=== PATIENT | female | born 1990 | race American Indian/Alaskan Native ===

== ENCOUNTER 2019-11-22 19:57 | Observation (INO) | payer OTHER ==
[2019-11-22] MEDS ORDERED: diphenhydrAMINE 50 MG/ML VIAL IV ONE (21:17)
[2019-11-22] MEDS ORDERED: SODIUM CHLORIDE 0.9% 1000 ML 1,000 ML IV ONE ×2 (21:17→23:55)
[2019-11-22] MEDS ORDERED: ONDANSETRON 4 MG/2 ML INJ IV ONE ×2 (21:17→23:55)
[2019-11-22 22:09] LABS: Albumin 5.1 g/dL (3.9-5); Calcium 10.3 mg/dL (8.4-10.2)
--- NOTE | 2019-11-22 22:10 | Emergency Department Report ---
ED General Adult HPI - General Chief complaint: Nausea/Vomiting/Diarrhea Stated complaint: DEHYDRATION Time Seen by Provider: 11/22/19 20:59 Source: patient, EMS Mode of arrival: Stretcher Limitations: No Limitations - History of Present Illness Initial comments: Patient presents to the emergency department the chief complaint of body aches vomiting that started on Wednesday. Patient states that she felt like this once before when she had food poisoning. Patient also complains of diffuse abdominal pain but denies any diarrhea. Patient also denies chest pain, shortness breath, or headache. Patient denies fever or any recent travel. -: Sudden Location: abdomen Severity scale (0 -10): 10 Quality: aching Consistency: constant Improves with: none Worsens with: none Associated Symptoms: denies other symptoms, nausea/vomiting Treatments Prior to Arrival: none - Related Data Allergies Allergy/AdvReac Type Severity Reaction Status Date / Time No Known Allergies Allergy Unverified 11/22/19 21:40 ED Review of Systems ROS: Stated complaint: DEHYDRATION Other details as noted in HPI Comment: All other systems reviewed and negative Constitutional: denies: chills, fever Eyes: denies: eye pain, eye discharge, vision change ENT: denies: ear pain, throat pain Respiratory: denies: cough, shortness of breath, wheezing Cardiovascular: denies: chest pain, palpitations Endocrine: no symptoms reported Gastrointestinal: abdominal pain, nausea, vomiting. denies: diarrhea Genitourinary: denies: urgency, dysuria, discharge Musculoskeletal: denies: back pain, joint swelling, arthralgia Skin: denies: rash, lesions Neurological: denies: headache, weakness, paresthesias Psychiatric: denies: anxiety, depression Hematological/Lymphatic: denies: easy bleeding, easy bruising ED Past Medical Hx - Past Medical History Previous Medical History?: No - Surgical History Past Surgical History?: No - Social History Smoking Status: Current Every Day Smoker Substance Use Type: Marijuana ED Physical Exam - General Limitations: No Limitations General appearance: alert, in no apparent distress - Head Head exam: Present: atraumatic, normocephalic - Eye Eye exam: Present: normal appearance - ENT ENT exam: Present: mucous membranes moist - Neck Neck exam: Present: normal inspection - Respiratory Respiratory exam: Present: normal lung sounds bilaterally. Absent: respiratory distress - Cardiovascular Cardiovascular Exam: Present: regular rate, normal rhythm. Absent: systolic murmur, diastolic murmur, rubs, gallop - GI/Abdominal GI/Abdominal exam: Present: soft, tenderness (Diffuse ttp ), normal bowel sounds. Absent: distended - Extremities Exam Extremities exam: Present: normal inspection - Back Exam Back exam: Present: normal inspection - Neurological Exam Neurological exam: Present: alert, oriented X3, CN II-XII intact. Absent: motor sensory deficit - Psychiatric Psychiatric exam: Present: normal affect, normal mood - Skin Skin exam: Present: warm, dry, intact, normal color. Absent: rash ED Course Vital Signs 11/22/19 21:15 Temperature 98.2 F Pulse Rate 104 H Respiratory 16 Rate Blood Pressure 119/89 O2 Sat by Pulse 100 Oximetry ED Medical Decision Making - Lab Data Result diagrams: 11/22/19 21:25 11/22/19 21:25 Lab Results 11/22/19 11/22/19 11/22/19 Range/Units 21:25 21:25 21:25 WBC 8.5 (4.5-11.0) K/mm3 RBC 5.96 H (3.65-5.03) M/mm3 Hgb 15.2 H (10.1-14.3) gm/dl Hct 47.1 H (30.3-42.9) % MCV 79 (79-97) fl MCH 26 L (28-32) pg MCHC 32 (30-34) % RDW 18.1 H (13.2-15.2) % Plt Count 681 H (140-440) K/mm3 Lymph % (Auto) 23.0 (13.4-35.0) % Wallace % (Auto) 15.2 H (0.0-7.3) % Eos % (Auto) 0.5 (0.0-4.3) % Baso % (Auto) 0.8 (0.0-1.8) % Lymph # 1.9 (1.2-5.4) K/mm3 Wallace # 1.3 H (0.0-0.8) K/mm3 Eos # 0.0 (0.0-0.4) K/mm3 Baso # 0.1 (0.0-0.1) K/mm3 Seg Neutrophils % 60.5 (40.0-70.0) % Seg Neutrophils # 5.1 (1.8-7.7) K/mm3 Sodium 132 L (137-145) mmol/L Potassium 4.3 (3.6-5.0) mmol/L Chloride 90.3 L (98-107) mmol/L Carbon Dioxide 18 L (22-30) mmol/L Anion Gap 28 mmol/L BUN 48 H (7-17) mg/dL Creatinine 4.4 H (0.7-1.2) mg/dL Estimated GFR 14 ml/min BUN/Creatinine Ratio 11 % Glucose 113 H (65-100) mg/dL Calcium 10.3 H (8.4-10.2) mg/dL Total Bilirubin 0.40 (0.1-1.2) mg/dL AST 24 (5-40) units/L ALT 17 (7-56) units/L Alkaline Phosphatase 70 (35-129) units/L Total Protein 10.1 H (6.3-8.2) g/dL Albumin 5.1 H (3.9-5) g/dL Albumin/Globulin Ratio 1.0 % Lipase 48 (13-60) units/L HCG, Quant < 2 (0-4) mIU/mL - Radiology Data Radiology results: report reviewed - Medical Decision Making Patient received IV fluids and Zofran with improvement in her symptoms Discussed results with patient and need for admission Critical Care Time: Yes Critical care time in (mins) excluding proc time.: 35 Critical care attestation.: If time is entered above; I have spent that time in minutes in the direct care of this critically ill patient, excluding procedure time. ED Disposition Clinical Impression: Acute renal failure (ARF) Disposition: OP ADMIT IP TO THIS HOSP Is pt being admited?: Yes Does the pt Need Aspirin: No Condition: Fair
[2019-11-22 22:15] LABS: Basophils # (Auto) 0.1 K/mm3 (0.0-0.1); Basophils % (Auto) 0.8 % (0.0-1.8); Eosinophils % (Auto) 0.5 % (0.0-4.3); Hematocrit 47.1 % (30.3-42.9); Hemoglobin 15.2 gm/dl (10.1-14.3); Lymphocytes # (Auto) 1.9 K/mm3 (1.2-5.4); Mean Corpuscular HGB Conc 32 % (30-34); Mean Corpuscular Volume 79 fl (79-97); Monocytes # (Auto) 1.3 K/mm3 (0.0-0.8); Monocytes % (Auto) 15.2 % (0.0-7.3); Platelet Count 681 K/mm3 (140-440); Red Blood Count 5.96 M/mm3 (3.65-5.03); Red Cell Distribution Width 18.1 % (13.2-15.2)
[2019-11-22] MEDS ORDERED: MORPHINE 4 MG/1 ML INJ IV ONE (23:55)
--- NOTE | 2019-11-23 00:15 | Cat Scan Report ---
CT ABDOMEN AND PELVIS WITHOUT CONTRAST INDICATION / CLINICAL INFORMATION: Pt complains of abdominal pain with nausea and vomiting.. TECHNIQUE: Axial CT images were obtained through the abdomen and pelvis without IV contrast. All CT scans at [facility] location are performed using CT dose reduction for ALARA by means of automated exposure control. T he exam is somewhat limited secondary to respiratory motion during the examination. COMPARISON: None available. FINDINGS: LOWER CHEST: No significant abnormality. LIVER: No significant abnormality. GALLBLADDER: No significant abnormality. BILE DUCTS: No significant abnormality. PANCREAS: No significant abnormality. SPLEEN: No significant abnormality. ADRENALS: No significant abnormality. RIGHT KIDNEY and URETER: No significant abnormality. LEFT KIDNEY and URETER: No significant abnormality. STOMACH and SMALL BOWEL: No significant abnormality. COLON: No significant abnormality. APPENDIX: No significant abnormality. PERITONEUM: No free fluid. No free air. No fluid collection. LYMPH NODES: No significant adenopathy. AORTA and ARTERIES: No significant abnormality. IVC and VEINS: No significant abnormality. URINARY BLADDER: No significant abnormality. REPRODUCTIVE ORGANS: No significant abnormality. ADDITIONAL FINDINGS: None. SKELETAL SYSTEM: No significant abnormality. IMPRESSION: 1. No significant abnormality. Signer Name: Siddharth Leo MD Signed: 11/23/2019 12:10 AM Workstation Name: [id number]
[2019-11-23] MEDS ORDERED: ACETAMINOPHEN 325 MG TAB PO PRN (01:21)
[2019-11-23] MEDS ORDERED: MAGNESIUM HYDROXIDE (MOM) ORAL LIQD UDC PO PRN (01:21)
--- NOTE | 2019-11-23 01:32 | History and Physical Report ---
History of Present Illness Date of examination: 11/23/19 Date of admission: 11/23/19 00:44 Chief complaint: Nausea and vomiting Abdominal pain History of present illness: 29-year-old female with no significant past medical history presenting to the emergency room today complaining of generalized body aches and pain, nausea and vomiting which started about 5 days ago. She has also had some associated abdominal pain. She denies any fever or chills, no chest pain or shortness of breath, no headache or dizziness, no hematuria or dysuria, denies any recent travel or sick contacts. She denies contact with anyone with COVID-19. Patient indicates that she has had similar symptoms in the past when she had food poisoning. Work-up in the emergency room today reveals a creatinine of 4.4. CT scan of the abdomen and pelvis was unremarkable. Past History Past Medical History: No medical history Past Surgical History: No surgical history Social history: no significant social history Family history: no significant family history Medications and Allergies Allergies Allergy/AdvReac Type Severity Reaction Status Date / Time No Known Allergies Allergy Verified 11/23/19 01:26 Active Meds: Active Medications Acetaminophen (Tylenol) 650 mg PO Q4H PRN PRN Reason: Pain MILD(1-3)/Fever >100.5/ORTIZ Heparin Sodium (Porcine) (Heparin) 5,000 unit SUB-Q Q8HR TRAVIS Sodium Chloride (Nacl 0.9% 1000 Ml) 1,000 mls @ 125 mls/hr IV DIRECT TRAVIS Magnesium Hydroxide (Milk Of Magnesia) 30 ml PO Q4H PRN PRN Reason: Constipation Morphine Sulfate (Morphine) 2 mg IV Q4H PRN PRN Reason: Pain, Moderate (4-6) Ondansetron HCl (Zofran) 4 mg IV Q8H PRN PRN Reason: Nausea And Vomiting Sodium Chloride (Sodium Chloride Flush Syringe 10 Ml) 10 ml IV BID TRAVIS Sodium Chloride (Sodium Chloride Flush Syringe 10 Ml) 10 ml IV PRN PRN PRN Reason: LINE FLUSH Review of Systems Constitutional: no fever, no chills Ears, nose, mouth and throat: no nasal congestion, no sore throat Cardiovascular: no chest pain, no palpitations Respiratory: no cough, no shortness of breath Gastrointestinal: abdominal pain, nausea, vomiting, no diarrhea, no constipation Genitourinary Female: no pelvic pain, no flank pain, no dysuria, no hematuria Musculoskeletal: no neck pain, no low back pain Integumentary: no rash, no pruritis Neurological: no headaches, no confusion Psychiatric: no anxiety, no depression Exam - Constitutional Vitals: Temp Pulse Resp BP Pulse Ox 98.2 F 104 H 16 119/89 100 11/22/19 21:15 11/22/19 21:15 11/22/19 21:15 11/22/19 21:15 11/22/19 21:15 General appearance: Present: no acute distress, well-nourished - EENT Eyes: Present: PERRL, EOM intact ENT: hearing intact, clear oral mucosa, dentition normal - Neck Neck: Present: supple, normal ROM - Respiratory Respiratory effort: normal Respiratory: bilateral: CTA - Cardiovascular Rhythm: regular Heart Sounds: Present: S1 & S2. Absent: gallop, systolic murmur, diastolic murmur, rub - Extremities Extremities: no ischemia, pulses intact, pulses symmetrical, No edema, Full ROM Peripheral Pulses: within normal limits - Abdominal General gastrointestinal: Present: soft, tender, non-distended, normal bowel sounds Localized gastrointestinal: tender: RLQ, LLQ, suprapubic - Integumentary Integumentary: Present: clear, warm, dry - Musculoskeletal Musculoskeletal: strength equal bilaterally - Psychiatric Psychiatric: appropriate mood/affect, cooperative - Neurologic Neurologic: CNII-XII intact, no focal deficits, moves all extremities Results - Labs CBC & Chem 7: 11/22/19 21:25 11/22/19 21:25 Labs: Abnormal lab results 11/22/19 11/22/19 Range/Units 21:25 21:25 RBC 5.96 H (3.65-5.03) M/mm3 Hgb 15.2 H (10.1-14.3) gm/dl Hct 47.1 H (30.3-42.9) % MCH 26 L (28-32) pg RDW 18.1 H (13.2-15.2) % Plt Count 681 H (140-440) K/mm3 [place] % (Auto) 15.2 H (0.0-7.3) % [place] # 1.3 H (0.0-0.8) K/mm3 Sodium 132 L (137-145) mmol/L Chloride 90.3 L (98-107) mmol/L Carbon Dioxide 18 L (22-30) mmol/L BUN 48 H (7-17) mg/dL Creatinine 4.4 H (0.7-1.2) mg/dL Glucose 113 H (65-100) mg/dL Calcium 10.3 H (8.4-10.2) mg/dL Total Protein 10.1 H (6.3-8.2) g/dL Albumin 5.1 H (3.9-5) g/dL Assessment and Plan - Patient Problems (1) Acute renal failure (ARF) Current Visit: Yes Status: Acute Plan to address problem: Possibly secondary to the nausea and vomiting. She has been placed on IV fluid. Will monitor BUN and creatinine. Consult placed to nephrology for evaluation and recommendation. (2) Nausea & vomiting Current Visit: Yes Status: Acute Plan to address problem: Etiology is unclear. Patient placed on IV Zofran as needed. (3) Abdominal pain Current Visit: Yes Status: Acute Plan to address problem: Patient placed on IV analgesic medication as needed. (4) DVT prophylaxis Current Visit: Yes Status: Acute Plan to address problem: Will place on subcutaneous heparin. (5) Full code status Current Visit: Yes Status: Acute
[2019-11-23 02:40] LABS: Amphetamine Screen,Urine PRESUMPTIVE NEGATIVE; Benzodiazepines Screen,Urine PRESUMPTIVE NEGATIVE; Cannabinoid Screen,Urine PRESUMPTIVE POSITIVE; Cocaine Screen,Urine PRESUMPTIVE NEGATIVE; Methadone Screen,Urine PRESUMPTIVE NEGATIVE; Opiate Screen,Urine PRESUMPTIVE NEGATIVE
[2019-11-23 02:47] LABS: Bacteria,Urine 1+ /HPF (Negative); Bilirubin,Urine NEG (Negative); Blood,Urine MOD (Negative); Color,Urine Yellow (Yellow); Hyaline Casts,Urine 3 /LPF; Mucus,Urine 2+ /HPF; Urobilinogen,Urine < 2.0 mg/dL (<2.0)
[2019-11-23] MEDS ORDERED: ONDANSETRON 4 MG/2 ML INJ ONE (06:21)
[2019-11-23] MEDS ORDERED: HEPARIN 5,000 UNIT/1 ML VIAL ONE (06:22)
[2019-11-23] MEDS: ONDANSETRON 4 MG/2 ML INJ IV PRN ×2 (06:23→22:00)
[2019-11-23] MEDS: HEPARIN 5,000 UNIT/1 ML VIAL SUB-Q SCH ×3 (06:24→21:55)
[2019-11-23] MEDS ORDERED: MORPHINE 2 MG/1 ML INJ ONE (09:33)
[2019-11-23] MEDS ORDERED: SODIUM CHLORIDE 0.9% 1000 ML 1,000 ML ONE (09:33)
[2019-11-23] MEDS: MORPHINE 2 MG/1 ML INJ IV PRN ×4 (09:35→21:54)
[2019-11-23] MEDS: SODIUM CHLORIDE 0.9% 1000 ML 1,000 ML IV SCH ×2 (09:35→12:26)
--- NOTE | 2019-11-23 09:42 | Event Note ---
<DELORES BOWER - Last Filed: 11/23/19 10:51> Date: 11/23/19 29 year old female presented to the ED with 4-5 days of n/v in GINO (Cr 4.4), CT abd/pelvis shows no acute abnormality, Nephrology consulted and ordered renal u/s along with uric acid and urine osmo, PATIENCE titer and Hepatitis profile. She is on IVF NS @ 125ml/hour and a regular diet with morphine for pain control and zofran for n/v. Will trend BMP. <BRIANA JEAN BAPTISTE - Last Filed: 11/24/19 08:18> I saw and evaluated the patient. I agree with the findings and the plan of care as documented in the Nurse Practitioner's~note, with the following corrections and additions.
--- NOTE | 2019-11-23 10:06 | Consultation ---
History of Present Illness - History of Present Illness Acute renal failure likely in a patient who is 29-year-old admitted with a cre atinine of 4.4 bicarb of 18 and potassium of 4.3 with mild hypercalcemia 10.3 urinalysis shows 1+ bacteria 2 red blood cells and only 30 mg of protein in a specimen which is concentrated 1.020 specific gravity urine drug screen negative no old records in our system patient was taking BCs and Goody's Powder for nearly 1 week prior to arrival, she is also a very poor historian and it was very difficult to obtain history from her he does not recall having any history of chronic kidney disease, hist ory of lupus hepatitis proteinuria but again the information is very limited because she is a very poor historian Patient clinically appears to be prerenal and has had generalized body ache nausea vomiting present for last 4-5 days she does need IV hydration CT scan of the abdomen and pelvis was unremarkable Mild metabolic acidosis continue to hydrate follow-up on renal function panel There is no acute emergent indication for renal replacement therapy Monitor renal function patiently I have ordered follow-up labs as well as a renal ultrasonogram to assess the echotexture of the kidney to make sure she does not have underlying chronic kidney disease at this time continue with hydration will monitor labs and follow-up Past History Past Medical History: No medical history Past Surgical History: No surgical history Social history: no significant social history Family history: no significant family history Medications and Allergies Allergies Allergy/AdvReac Type Severity Reaction Status Date / Time No Known Allergies Allergy Verified 11/23/19 01:26 Active Meds: Active Medications Acetaminophen (Tylenol) 650 mg PO Q4H PRN PRN Reason: Pain MILD(1-3)/Fever >100.5/ORTIZ Heparin Sodium (Porcine) (Heparin) 5,000 unit SUB-Q Q8HR TRAVIS Last Admin: 11/23/19 06:24 Dose: 5,000 unit Documented by: Sodium Chloride (Nacl 0.9% 1000 Ml) 1,000 mls @ 125 mls/hr IV DIRECT TRAVIS Last Admin: 11/23/19 09:35 Dose: 125 mls/hr Documented by: Magnesium Hydroxide (Milk Of Magnesia) 30 ml PO Q4H PRN PRN Reason: Constipation Morphine Sulfate (Morphine) 2 mg IV Q4H PRN PRN Reason: Pain, Moderate (4-6) Last Admin: 11/23/19 09:35 Dose: 2 mg Documented by: Ondansetron HCl (Zofran) 4 mg IV Q8H PRN PRN Reason: Nausea And Vomiting Last Admin: 11/23/19 06:23 Dose: 4 mg Documented by: Sodium Chloride (Sodium Chloride Flush Syringe 10 Ml) 10 ml IV BID TRAVIS Last Admin: 11/23/19 09:36 Dose: 10 ml Documented by: Sodium Chloride (Sodium Chloride Flush Syringe 10 Ml) 10 ml IV PRN PRN PRN Reason: LINE FLUSH Exam - Vital Signs Vital signs: Vital Signs Pulse Resp Pulse Ox 101 H 11 L 100 11/22/19 21:14 11/22/19 21:14 11/22/19 21:14 Results - Lab Results 11/24/19 03:56 11/24/19 03:56 Most recent lab results Calcium 10.3 mg/dL (8.4-10.2) H 11/22/19 21:25
[2019-11-23 12:29] LABS: Hepatitis B Surface Antigen Non-Reactive (Negative); Hepatitis C Virus Antibody Non-Reactive (NonReactive)
--- NOTE | 2019-11-23 16:40 | Ultrasound Report ---
US renal BILAT INDICATION / CLINICAL INFORMATION: renal failure please assess echotexture. COMPARISON: CT abdomen pelvis done yesterday FINDINGS: Kidneys are normal in size, shape and position. However, cortex of each kidney is slightly increased in echogenicity, a nonspecific finding which can be associated with renal parenchymal disease. Neithe r kidney is hydronephrotic. No abnormal mass. Urinary bladder is mostly collapsed but appears grossly unremarkable. IMPRESSION: 1. Echogenicity of each renal cortex is slightly increased, suggesting renal parenchymal disease. Signer Name: Nagi River MD Signed: 11/23/2019 4:35 PM Workstation Name: [id number]
[2019-11-24] MEDS ORDERED: diphenhydrAMINE 25 MG CAP PO ONE (01:52)
[2019-11-24 04:50] LABS: Basophils # (Auto) 0.1 K/mm3 (0.0-0.1); Basophils % (Auto) 0.7 % (0.0-1.8); Eosinophils # (Auto) 0.1 K/mm3 (0.0-0.4); Eosinophils % (Auto) 1.9 % (0.0-4.3); Hematocrit 35.8 % (30.3-42.9); Hemoglobin 11.6 gm/dl (10.1-14.3); Lymphocytes # (Auto) 3.2 K/mm3 (1.2-5.4); Lymphocytes % (Auto) 41.2 % (13.4-35.0); Mean Corpuscular HGB Conc 32 % (30-34); Mean Corpuscular Volume 80 fl (79-97); Platelet Count 446 K/mm3 (140-440); Red Blood Count 4.48 M/mm3 (3.65-5.03); Red Cell Distribution Width 17.5 % (13.2-15.2)
[2019-11-24 04:59] LABS: BUN/Creatinine Ratio 16; Blood Urea Nitrogen 14 mg/dL (7-17); Calcium 8.4 mg/dL (8.4-10.2); Hemolysis Index 49
[2019-11-24] MEDS: HEPARIN 5,000 UNIT/1 ML VIAL SUB-Q SCH ×2 (05:37→14:00)
[2019-11-24] MEDS: SODIUM CHLORIDE 0.9% 1000 ML 1,000 ML IV SCH (05:38)
[2019-11-24 07:02] VITALS: BP 114/66
--- NOTE | 2019-11-24 09:57 | Progress Note ---
Subjective Interval history: acute kidney injury, renal function has markedly improved with hydration alone Patient was taking ibuprofen BC is Goody's in the outpatient setting she was advised not to do so renal echogenicity appears to have increased and hence she will need a follow- up appointment in the office in approximately 4-6 weeks Advised to follow a proper diet plan maintain hydration, She is stable for discharge from renal standpoint Objective - Vital Signs Vital signs: Vital Signs - 12hr 11/23/19 11/24/19 23:44 05:37 Temperature 98.9 F 98.7 F Pulse Rate 69 61 Respiratory 20 20 Rate Blood Pressure 125/73 114/66 O2 Sat by Pulse 100 100 Oximetry - Lab 11/24/19 03:56 11/24/19 03:56 Most recent lab results Calcium 8.4 mg/dL (8.4-10.2) D 11/24/19 03:56 Medications & Allergies - Medications Allergies/Adverse Reactions: Allergies No Known Allergies Allergy (Verified 11/23/19 01:26) Active Medications: Generic Name Dose Route Start Last Admin Trade Name Freq PRN Reason Stop Dose Admin Acetaminophen 650 mg 11/23/19 01:21 Tylenol PO Q4H PRN Pain MILD(1-3)/Fever >100.5/ORTIZ Heparin Sodium (Porcine) 5,000 unit 11/23/19 06:00 11/24/19 05:37 Heparin SUB-Q 5,000 unit Q8HR TRAVIS Administration Sodium Chloride 1,000 mls @ 125 mls/hr 11/23/19 01:30 11/24/19 05:38 Nacl 0.9% 1000 Ml IV 125 mls/hr DIRECT TRAVIS Administration Magnesium Hydroxide 30 ml 11/23/19 01:21 Milk Of Magnesia PO Q4H PRN Constipation Morphine Sulfate 2 mg 11/23/19 01:21 11/23/19 21:54 Morphine IV 2 mg Q4H PRN Administration Pain, Moderate (4-6) Ondansetron HCl 4 mg 11/23/19 01:21 11/23/19 22:00 Zofran IV 4 mg Q8H PRN Administration Nausea And Vomiting Sodium Chloride 10 ml 11/23/19 10:00 11/23/19 21:55 Sodium Chloride Flush Syringe 10 Ml IV 10 ml BID TRAVIS Administration Sodium Chloride 10 ml 11/23/19 01:21 Sodium Chloride Flush Syringe 10 Ml IV PRN PRN LINE FLUSH
--- NOTE | 2019-11-24 12:20 | Discharge Summary ---
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 11/22 Renal US: Echogenicity of each renal cortex is slightly increased, suggesting renal parenchymal disease. Hospital course: 29 year old female with no medical history presented to the ED with 4-5 days of n/v in GINO (Cr 4.4), CT abd/pelvis shows no acute abnormality, nephrology was consulted and ordered renal u/s which showed increased renal echogenicity. He GINO has resolved with IV hydration. She will need a follow-up appointment in the office in approximately 4-6 weeks with nephrology. Disposition: TO HOME OR SELFCARE Time spent for discharge: 35 - Discharge Diagnoses (1) Acute renal failure (ARF) Status: Acute Core Measure Documentation - Palliative Care Palliative Care/ Comfort Measures: Not Applicable - Core Measures Any of the following diagnoses?: none Exam - Constitutional Vitals: Temp Pulse Resp BP Pulse Ox 98.7 F 61 20 114/66 100 11/24/19 05:37 11/24/19 05:37 11/24/19 05:37 11/24/19 05:37 11/24/19 05:37 General appearance: Present: no acute distress - EENT Eyes: Present: PERRL, EOM intact ENT: hearing intact, clear oral mucosa, dentition normal - Neck Neck: Present: supple, normal ROM - Respiratory Respiratory effort: normal Respiratory: bilateral: CTA - Cardiovascular Rhythm: regular Heart Sounds: Present: S1 & S2. Absent: systolic murmur, diastolic murmur - Extremities Extremities: no ischemia, pulses intact, pulses symmetrical, No edema, normal temperature, normal color, Full ROM Peripheral Pulses: within normal limits - Abdominal General gastrointestinal: Present: non-tender, non-distended, normal bowel sounds Female genitourinary: Present: other (started mentral cycle per pt) - Integumentary Integumentary: Present: clear, warm, dry - Musculoskeletal Musculoskeletal: strength equal bilaterally - Psychiatric Psychiatric: appropriate mood/affect, cooperative - Neurologic Neurologic: CNII-XII intact, no focal deficits, moves all extremities Plan Activity: advance as tolerated Weight Bearing Status: Full Weight Bearing Diet: regular Additional Instructions: Stop taking Goody's powder. Needs a follow-up appointment in the office with Dr. Reeves in approximately 4-6 weeks post discharge. Advised to follow a proper diet plan maintain hydration. Follow up with: PRIMARY CAREMD [Primary Care Provider] - 3-5 Days JESUS REEVES MD [Staff Physician] - 6 Weeks (4-6 weeks)
[2019-11-29 13:27] LABS: ANA Screen, IFA Negative (Negative)
== END 2019-11-24 16:50 | disposition home or self-care (01) ==
LOC: ED 19:57 → 3A 11-23 00:44 → 4A 11-23 08:36
PROVIDERS: ADMIT Internal Medicine Geriatric Medicine; ATTEND Hospitalist
DX: E86.0 Dehydration (principal); N17.9 Acute kidney failure, unspecified; F17.200 Nicotine dependence, unspecified, uncomplicated; Z79.899 Other long term (current) drug therapy
CPT/HCPCS: 36415; 74176; 76770; 80048; 80053; 80074; 80307; 81001; 83690; 83930; 84550; 84702; 85025; 85610; 86038; 96361; 96372; 96374; 96375; 96376; 99291; G0378; J1200; J1644; J2270; J2405; J7030

== ENCOUNTER 2019-12-22 13:17 | Emergency (ER) | payer OTHER ==
[2019-12-22 15:59] LABS: Basophils # (Auto) 0.1 K/mm3 (0.0-0.1); Basophils % (Auto) 0.9 % (0.0-1.8); Eosinophils % (Auto) 0.4 % (0.0-4.3); Hematocrit 37.5 % (30.3-42.9); Hemoglobin 12.4 gm/dl (10.1-14.3); Lymphocytes # (Auto) 2.1 K/mm3 (1.2-5.4); Lymphocytes % (Auto) 19.9 % (13.4-35.0); Mean Corpuscular HGB Conc 33 % (30-34); Mean Corpuscular Volume 79 fl (79-97); Monocytes # (Auto) 1.2 K/mm3 (0.0-0.8); Monocytes % (Auto) 11.6 % (0.0-7.3); Platelet Count 501 K/mm3 (140-440); Red Blood Count 4.74 M/mm3 (3.65-5.03); Red Cell Distribution Width 17.9 % (13.2-15.2)
[2019-12-22 16:13] LABS: Alanine Aminotransferase 10 units/L (7-56); Albumin 4.9 g/dL (3.9-5); BUN/Creatinine Ratio 10; Blood Urea Nitrogen 10 mg/dL (7-17); Calcium 10.6 mg/dL (8.4-10.2); Hemolysis Index 13
--- NOTE | 2019-12-22 20:32 | Emergency Department Report ---
ED Abdominal Pain HPI - General Chief Complaint: Abdominal Pain Stated Complaint: INTESTING PROLEMS PUI?: No Time Seen by Provider: 12/22/19 20:27 Source: patient Mode of arrival: Ambulatory Limitations: No Limitations - History of Present Illness Initial Comments: Patient is a 29-year-old female that presents emergency room with complaints of abdominal pain, nausea vomiting, urinary retention. Patient states she was seen here 2 weeks ago for acute renal failure and admitted. Patient states she was discharged and never followed up with her primary care. Patient states 2 days ago she went to the [facility] and was seen there and was discharged from there as well. Patient states her symptoms are worsening. Patient states her abdominal pain is a 10 out of 10. Patient states the generalized abdominal pain. Patient dates she is having bowel movements and she is having nausea and vomiting. Patient denies blood in her vomit and stool. Patient states she has not urinated for 3 days. Patient states that she not having dysuria but she is just not able to urinate. Patient states she is not able to drink water either. Patient denies chest pain or shortness of breath. Patient denies fever chills. Patient denies recent travel. Patient denies recent international travel. Patient denies exposure to the novel coronavirus. Patient denies sick contacts. Patient denies fever and chills. Patient denies cough. Patient denies diarrhea. Patient denies coming in contact with anybody with symptoms of the novel coronavirus. MD Complaint: abdominal pain -: Sudden Location: diffuse Radiation: none Migration to: no migration Severity: severe Severity scale (0 -10): 10 Quality: stabbing Consistency: constant Improves With: rest Worsens With: movement Associated Symptoms: nausea, vomiting. denies: diarrhea, fever, chills, constipation, dysuria, hematemesis, hematochezia, melena, hematuria, anorexia, syncope - Related Data LMP (females 10-50): 3 weeks Previous Rx's Medication Instructions Recorded Last Taken Type Acetaminophen [Acetaminophen TAB] 650 mg PO Q4H PRN tablet 11/24/19 Unknown Rx Ondansetron [Zofran Odt] 4 mg PO Q6HR PRN #20 tab.rapdis 12/22/19 Unknown Rx Allergies Allergy/AdvReac Type Severity Reaction Status Date / Time No Known Allergies Allergy Verified 11/23/19 01:26 ED Review of Systems ROS: Stated complaint: INTESTING PROLEMS Other details as noted in HPI Constitutional: denies: chills, fever Eyes: denies: eye pain, eye discharge, vision change ENT: denies: ear pain, throat pain Respiratory: denies: cough, shortness of breath, wheezing Cardiovascular: denies: chest pain, palpitations Endocrine: no symptoms reported Gastrointestinal: abdominal pain, nausea, vomiting, constipation. denies: diarrhea Genitourinary: as per HPI, other. denies: urgency, dysuria, discharge Musculoskeletal: denies: back pain, joint swelling, arthralgia Skin: denies: rash, lesions Neurological: denies: headache, weakness, paresthesias Psychiatric: denies: anxiety, depression Hematological/Lymphatic: denies: easy bleeding, easy bruising ED Past Medical Hx - Past Medical History Previous Medical History?: Yes Hx HIV: No Additional medical history: Hx of ARF - Surgical History Past Surgical History?: No - Family History Family history: no significant - Social History Smoking Status: Current Every Day Smoker Substance Use Type: None - Medications Home Medications: Home Medications Medication Instructions Recorded Confirmed Last Taken Type Acetaminophen [Acetaminophen TAB] 650 mg PO Q4H PRN tablet 11/24/19 Unknown Rx Ondansetron [Zofran Odt] 4 mg PO Q6HR PRN #20 tab.rapdis 12/22/19 Unknown Rx ED Physical Exam - General Limitations: No Limitations General appearance: alert, in no apparent distress - Head Head exam: Present: atraumatic, normocephalic - Eye Eye exam: Present: normal appearance - ENT ENT exam: Present: mucous membranes moist - Neck Neck exam: Present: normal inspection - Respiratory Respiratory exam: Present: normal lung sounds bilaterally. Absent: respiratory distress, wheezes - Cardiovascular Cardiovascular Exam: Present: regular rate, normal rhythm. Absent: systolic murmur, diastolic murmur, rubs, gallop - GI/Abdominal GI/Abdominal exam: Present: soft, tenderness (Generalized tenderness), normal bowel sounds - Extremities Exam Extremities exam: Present: normal inspection - Back Exam Back exam: Present: normal inspection - Neurological Exam Neurological exam: Present: alert, oriented X3 - Psychiatric Psychiatric exam: Present: normal affect, normal mood - Skin Skin exam: Present: warm, dry, intact, normal color. Absent: rash ED Course Vital Signs 12/22/19 12/23/19 13:28 00:04 Temperature 97.6 F Pulse Rate 84 70 Respiratory 20 17 Rate Blood Pressure 153/96 131/88 [Right] O2 Sat by Pulse 100 100 Oximetry - Reevaluation(s) Reevaluation #1: Patient states her pain is better. Patient will receive fluids. Patient's Richardson is having good and adequate urine output. 12/22/19 22:15 Reevaluation #2: I discussed all results and clinical findings with patient. I discussed plan of care with patient. Patient agrees with plan of care. Patient is stable for discharge. Patient will be discharged home. Patient given discharge instructions. Patient voiced understanding of discharge instructions. Patient given Richardson catheter instructions. Patient voiced understanding of Richardson catheter instructions. Patient instructed that the urologist will remove the Richardson. 12/22/19 22:39 ED Medical Decision Making - Lab Data Result diagrams: 12/22/19 15:36 12/22/19 15:36 - Radiology Data Radiology results: report reviewed CT ABDOMEN AND PELVIS WITH IV CONTRAST INDICATION: abd pain. n/v. COMPARISON: None available. TECHNIQUE: All CT scans at this facility use dose modulation, automated exposure control, iterative reconstruction or weight based dosing, when appropriate, to reduce radiation dose to as low as reasonably achievable. FINDINGS: Lung Bases: No significant abnormality. Skeletal System: No acute abnormality. ABDOMEN: Liver: No significant abnormality. Gallbladder: No significant abnormality. Bile Ducts: No significant abnormality. Pancreas: No significant abnormality. Spleen: No significant abnormality. Adrenals: No significant abnormality. Right Kidney: No significant abnormality. Left Kidney: No significant abnormality. Upper GI tract: Stomach and small bowel are fluid-filled but not significantly dilated. Lymph Nodes: No significant adenopathy. Aorta: No significant abnormality. Additional Findings: No significant abnormality. PELVIS: Colon: No acute abnormality. Urinary Bladder and Distal Ureters: No significant abnormality. Appendix: No significant abnormality. Lymph Nodes: No significant adenopathy. Additional Findings: Physiologic ovarian cysts are noted. IMPRESSION: 1. Gastroenteritis. No bowel obstruction. 2. Incidental findings, as above. - Medical Decision Making Patient is a 29-year-old female that presents emergency room with complaints of abdominal pain, urinary retention, nausea and vomiting. Patient also complained of constipation. Patient had a CT done which was positive for gastroenteritis. Patient had a Richardson placed for her urinary retention. Patient will be discharged home with the Richardson. Patient has good urinary output. Patient given fluids in the ER. Patient given Zofran and her nausea improved. Patient's pain improved. Patient is stable for discharge. Patient had labs done. Patient's labs were essentially unremarkable. Patient discharged home with Richardson. Patient given Richardson instructions. - Differential Diagnosis Abdominal pain, gastroenteritis, N/V, constipation, urinary retention Critical care attestation.: If time is entered above; I have spent that time in minutes in the direct care of this critically ill patient, excluding procedure time. ED Disposition Clinical Impression: Gastroenteritis, Urinary retention Abdominal pain Qualifiers: Abdominal location: generalized Qualified Code(s): R10.84 - Generalized abdominal pain Nausea & vomiting Qualifiers: Vomiting type: unspecified Vomiting Intractability: non-intractable Qualified Code(s): R11.2 - Nausea with vomiting, unspecified Disposition: TO HOME OR SELFCARE Is pt being admited?: No Does the pt Need Aspirin: No Condition: Stable Instructions: Diet for Ulcers and Gastritis (ED), Gastroenteritis (ED), Acute Nausea and Vomiting (ED), Acute Urinary Retention in Women (ED), Abdominal Pain (ED) Additional Instructions: Patient to follow-up with primary care in 2 to 3 days. Patient to follow-up with gastroenterology in 2 to 3 days. Patient to follow-up with urology in 2 to 3 days. Patient to rest. Patient to increase water. Patient to avoid strenuous exercise or heavy lifting until cleared by primary care and urology. Patient to take Tylenol as needed for pain. Patient to take meds as directed. Patient to return to the ER if condition worsens, changes or new symptoms arise. Prescriptions: Ondansetron [Zofran Odt] 4 mg PO Q6HR PRN #20 tab.rapdis PRN Reason: Nausea And Vomiting Referrals: PRIMARY CARE, [Primary Care Provider] - 2-3 Days KE MANNING MD [Staff Physician] - 2-3 Days TJ HAMEED MD [Staff Physician] - 2-3 Days Forms: AMA Form Time of Disposition: 23:21
--- NOTE | 2019-12-22 22:04 | Cat Scan Report ---
CT ABDOMEN AND PELVIS WITH IV CONTRAST INDICATION: abd pain. n/v. COMPARISON: None available. TECHNIQUE: All CT scans at this facility use dose modulation, automated exposure control, iterative reconstructi on or weight based dosing, when appropriate, to reduce radiation dose to as low as reasonably achieva ble. FINDINGS: Lung Bases: No significant abnormality. Skeletal System: No acute abnormality. ABDOMEN: Liver: No significant abnormality. Gallbladder: No significant abnormality. Bile Ducts: No significant abnormality. Pancreas: No significant abnormality. Spleen: No significant abnormality. Adrenals: No significant abnormality. Right Kidney: No significant abnormality. Left Kidney: No significant abnormality. Upper GI tract: Stomach and small bowel are fluid-filled but not significantly dilated. Lymph Nodes: No significant adenopathy. Aorta: No significant abnormality. Additional Findings: No significant abnormality. PELVIS: Colon: No acute abnormality. Urinary Bladder and Distal Ureters: No significant abnormality. Appendix: No significant abnormality. Lymph Nodes: No significant adenopathy. Additional Findings: Physiologic ovarian cysts are noted. IMPRESSION: 1. Gastroenteritis. No bowel obstruction. 2. Incidental findings, as above. Signer Name: Maciej Mazariegos MD Signed: 12/22/2019 9:59 PM Workstation Name: [id number]
[2019-12-22] MEDS ORDERED: ONDANSETRON 4 MG/2 ML INJ IV ONE (22:05)
[2019-12-22] MEDS ORDERED: SODIUM CHLORIDE 0.9% 1000 ML 1,000 ML IV ONE (22:16)
[2019-12-22 23:02] LABS: Bacteria,Urine 1+ /HPF (Negative); Bilirubin,Urine NEG (Negative); Blood,Urine NEG (Negative); Color,Urine Yellow (Yellow); Mucus,Urine 3+ /HPF
[2019-12-23 00:05] VITALS: BP 131/88
== END 2019-12-23 00:41 | disposition home or self-care (01) ==
LOC: ED 13:17
DX: R33.9 Retention of urine, unspecified (principal); K52.9 Noninfective gastroenteritis and colitis, unspecified; R10.84 Generalized abdominal pain; R11.2 Nausea with vomiting, unspecified; F17.200 Nicotine dependence, unspecified, uncomplicated; Z79.899 Other long term (current) drug therapy
CPT/HCPCS: 36415; 51702; 74177; 80053; 81001; 84703; 85025; 96361; 96374; 99284; J2405; J7030; Q9967

== ENCOUNTER 2021-02-18 03:57 | Emergency (ER) | payer OTHER ==
[2021-02-18] MEDS ORDERED: METOCLOPRAMIDE 10 MG/2 ML INJ IV STA (04:10)
[2021-02-18] MEDS ORDERED: SODIUM CHLORIDE 0.9% 1000 ML 1,000 ML IV ONE (04:10)
[2021-02-18] MEDS ORDERED: diphenhydrAMINE 50 MG/ML VIAL IV STA (04:10)
[2021-02-18 04:44] LABS: Basophils # (Auto) 0.1 K/mm3 (0.0-0.1); Basophils % (Auto) 0.7 % (0.0-1.8); Eosinophils % (Auto) 0.1 % (0.0-4.3); Hemoglobin 13.3 gm/dl (10.1-14.3); Lymphocytes # (Auto) 2.5 K/mm3 (1.2-5.4); Lymphocytes % (Auto) 15.8 % (13.4-35.0); Mean Corpuscular HGB Conc 33 % (30-34); Mean Corpuscular Volume 83 fl (79-97); Monocytes # (Auto) 2.2 K/mm3 (0.0-0.8); Monocytes % (Auto) 13.7 % (0.0-7.3); Platelet Count 518 K/mm3 (140-440); Red Blood Count 4.82 M/mm3 (3.65-5.03); Red Cell Distribution Width 15.8 % (13.2-15.2)
[2021-02-18 05:03] LABS: Albumin 4.8 g/dL (3.9-5); Calcium 9.9 mg/dL (8.4-10.2)
[2021-02-18] MEDS ORDERED: DICYCLOMINE 20 MG/2 ML INJ IM ONE (05:31)
[2021-02-18 05:46] LABS: Bilirubin,Urine MOD (Negative); Blood,Urine NEG (Negative); Color,Urine Amber (Yellow); Mucus,Urine 3+ /HPF; Protein,Urine >500 mg/dL (Negative)
--- NOTE | 2021-02-18 05:46 | Emergency Department Report ---
<BOUCHRA ANDREA - Last Filed: 02/18/21 07:15> ED Female HPI - General Chief complaint: Nausea/Vomiting/Diarrhea Stated complaint: VOMITING, 8WKS Time Seen by Provider: 02/18/21 04:09 Source: patient Mode of arrival: Ambulatory Limitations: No Limitations - History of Present Illness Initial comments: 30-year-old female presents to the emergency department complaining of a multiple day history of nausea and vomiting uncontrollably in conjunction with upper abdominal pain to the epigastric region radiating down to the lower abdomen. Pain is dull and aching worse with palpation and range of motion she reports no hemoptysis no hematemesis no hematochezia no fever, chills, sweats. No diarrhea, no constipation no hematuria no dysuria. No fever, chills, sweats. MD Complaint: pelvic pain -: Gradual Severity: mild, moderate Quality: cramping, dull, aching Consistency: constant Improves with: none Worsens with: none Are you Now?: No Associated Symptoms: abdominal pain. denies: loss of appetite, hematuria, syncope, weakness - Related Data Previous Rx's Medication Instructions Recorded Last Taken Type Acetaminophen [Acetaminophen TAB] 650 mg PO Q4H PRN tablet 11/24/19 Unknown Rx Ondansetron [Zofran Odt] 4 mg PO Q6HR PRN #20 tab.rapdis 12/22/19 Unknown Rx Acetaminophen 325 mg PO Q6HR PRN #30 capsule 02/18/21 Unknown Rx Nitrofurantoin [place]/M-Cryst 100 mg PO Q12HR #14 capsule 02/18/21 Unknown Rx [Macrobid CAP] Promethazine [Phenergan] 25 mg PO Q6HR PRN #20 tab 02/18/21 Unknown Rx Allergies Allergy/AdvReac Type Severity Reaction Status Date / Time No Known Allergies Allergy Verified 11/23/19 01:26 ED Review of Systems Comment: All other systems reviewed and negative ED Past Medical Hx - Past Medical History Previous Medical History?: Yes Hx HIV: No Additional medical history: Hx of ARF. blood clots in abd. preeclampsia - Surgical History Past Surgical History?: No - Social History Smoking Status: Current Every Day Smoker Substance Use Type: None - Medications Home Medications: Home Medications Medication Instructions Recorded Confirmed Last Taken Type Acetaminophen [Acetaminophen TAB] 650 mg PO Q4H PRN tablet 11/24/19 Unknown Rx Ondansetron [Zofran Odt] 4 mg PO Q6HR PRN #20 tab.rapdis 12/22/19 Unknown Rx Acetaminophen 325 mg PO Q6HR PRN #30 capsule 02/18/21 Unknown Rx Nitrofurantoin [place]/M-Cryst 100 mg PO Q12HR #14 capsule 02/18/21 Unknown Rx [Macrobid CAP] Promethazine [Phenergan] 25 mg PO Q6HR PRN #20 tab 02/18/21 Unknown Rx ED Physical Exam - General Limitations: No Limitations General appearance: alert, in no apparent distress - Head Head exam: Present: atraumatic, normocephalic - Eye Eye exam: Present: normal appearance, PERRL, EOMI Pupils: Present: normal accommodation - ENT ENT exam: Present: mucous membranes moist - Neck Neck exam: Present: normal inspection - Respiratory Respiratory exam: Present: normal lung sounds bilaterally. Absent: respiratory distress - Cardiovascular Cardiovascular Exam: Present: regular rate, normal rhythm. Absent: systolic murmur, diastolic murmur, rubs, gallop - GI/Abdominal GI/Abdominal exam: Present: soft, tenderness (Tenderness is diffuse. Nondistended. Unable to assess tenderness for De Jesus's or McBurney's due to the patient cooperation and movement.), normal bowel sounds - Extremities Exam Extremities exam: Present: normal inspection, normal capillary refill - Back Exam Back exam: Present: normal inspection. Absent: CVA tenderness (R), CVA tenderness (L) - Neurological Exam Neurological exam: Present: alert, oriented X3, CN II-XII intact - Psychiatric Psychiatric exam: Present: normal affect, normal mood. Absent: anxious, flat affect - Skin Skin exam: Present: warm, dry, intact, normal color. Absent: rash, cyanosis, diaphoretic, urticaria ED Course - Reevaluation(s) Reevaluation #1: 02/18/21 07:15 Patient nausea is requesting ice chips complaining of a bit of pain will give course of Ativan patient signed out to Jerald Espinal ED Medical Decision Making - Lab Data Result diagrams: 02/18/21 04:28 02/18/21 04:28 - Medical Decision Making This patient presents with abdominal pain of unclear etiology. Their evaluation has not identified a emergent etiology for the abdominal pain. Specifically, given the very benign exam, normal laboratory studies, and lack of significant r isk factors, I have a very low suspicion for appendicitis, ischemic bowel, bowel perforation, or any other life threatening disease. I have discussed with the patient the level of uncertainty with undifferentiated abdominal pain and clearly explained the need to follow-up as noted on the discharge instructions, or return to the Emergency Department immediately if the pain worsens, develops fever, persistent and uncontrollable vomiting, or for any new symptoms or concerns. I discussed with the patient that this presentation today for abdominal pain could represent a significant risk for an acute abdominal process. Although the tests in the ED were essentially normal, there is still a possibility of a process such as appendicitis, diverticulitis, cholecystitis, ulcer, early bowel obstruction, mesenteric ischemia, kidney stone, or even kidney infection which could subsequently cause disability or . The patient understands that they must return within 24 hours for a recheck or see their physician within 24 hours for re-exam due to the possibility of significant surgical or medical process. ED Disposition Clinical Impression: Asymptomatic bacteriuria, Abdominal pain during in first trimester, Nausea and vomiting during Disposition: 01 HOME / SELF CARE / HOMELESS Condition: Stable Instructions: Abdominal Pain During , [id number], Hyperemesis Gravidarum Prescriptions: Acetaminophen 325 mg PO Q6HR PRN #30 capsule PRN Reason: Pain , Severe (7-10) Nitrofurantoin [place]/M-Cryst [Macrobid CAP] 100 mg PO Q12HR #14 capsule Promethazine [Phenergan] 25 mg PO Q6HR PRN #20 tab PRN Reason: Nausea Referrals: [facility] [Provider Group] - 3-5 Days Forms: Work/School Release Form(ED) <JERALD COX - Last Filed: 02/18/21 07:25> ED Review of Systems ROS: Stated complaint: VOMITING, 8WKS Other details as noted in HPI ED Course Vital Signs 02/18/21 04:00 Temperature 98.1 F Pulse Rate 112 H Respiratory 16 Rate Blood Pressure 135/80 [Right] O2 Sat by Pulse 100 Oximetry - Reevaluation(s) Reevaluation #2: 02/18/21 07:22 Patient's abdominal ultrasound and ultrasound returned unremarkable. There is a viable intrauterine with normal cardiac activity. Upper abdominal ultrasound showed no evidence of gallbladder pathology or other acute process. Reevaluated the patient and she was tolerating p.o. fluids well and felt better after a dose of Ativan in the ER. Recommended clear liquids for the next 24 hours, Tylenol for pain and follow-up with her [facility] in 24 hours. Return to the ER with any change or worsening symptoms. She verbalized understand the diagnosis, treatment plan and follow-up instructions and all of her questions were answered. ED Medical Decision Making - Lab Data Result diagrams: 02/18/21 04:28 02/18/21 04:28 Lab Results 02/18/21 02/18/21 02/18/21 Range/Units 04:28 04:28 04:28 WBC 16.1 H (4.5-11.0) K/mm3 RBC 4.82 (3.65-5.03) M/mm3 Hgb 13.3 (10.1-14.3) gm/dl Hct 40.0 (30.3-42.9) % MCV 83 (79-97) fl MCH 28 (28-32) pg MCHC 33 (30-34) % RDW 15.8 H (13.2-15.2) % Plt Count 518 H (140-440) K/mm3 Lymph % (Auto) 15.8 (13.4-35.0) % [place] % (Auto) 13.7 H (0.0-7.3) % Eos % (Auto) 0.1 (0.0-4.3) % Baso % (Auto) 0.7 (0.0-1.8) % Lymph # (Auto) 2.5 (1.2-5.4) K/mm3 [place] # (Auto) 2.2 H (0.0-0.8) K/mm3 Eos # (Auto) 0.0 (0.0-0.4) K/mm3 Baso # (Auto) 0.1 (0.0-0.1) K/mm3 Seg Neutrophils % 69.7 (40.0-70.0) % Seg Neutrophils # 11.2 H (1.8-7.7) K/mm3 Sodium 135 L (137-145) mmol/L Potassium 3.9 (3.6-5.0) mmol/L Chloride 98.8 (98-107) mmol/L Carbon Dioxide 20 L (22-30) mmol/L Anion Gap 20 mmol/L BUN 17 (7-17) mg/dL Creatinine 1.3 H (0.6-1.2) mg/dL Estimated GFR 57 ml/min BUN/Creatinine Ratio 13 % Glucose 147 H (65-100) mg/dL Calcium 9.9 (8.4-10.2) mg/dL Total Bilirubin 0.80 (0.1-1.2) mg/dL AST 53 H (5-40) units/L ALT 47 (7-56) units/L Alkaline Phosphatase 70 (35-129) units/L Total Protein 9.5 H (6.3-8.2) g/dL Albumin 4.8 (3.9-5) g/dL Albumin/Globulin Ratio 1.0 % Lipase (13-60) units/L HCG, Quant 017813 H (0-4) mIU/mL Urine Color (Yellow) Urine Turbidity (Clear) Urine pH (5.0-7.0) Ur Specific [place] (1.003-1.030) Urine Protein (Negative) mg/dL Urine Glucose (UA) (Negative) mg/dL Urine Ketones (Negative) mg/dL Urine Blood (Negative) Urine Nitrite (Negative) Urine Bilirubin (Negative) Urine Ictotest (Negative) Urine Urobilinogen (<2.0) mg/dL Ur Leukocyte Esterase (Negative) Urine WBC (Auto) (0.0-6.0) /HPF Urine RBC (Auto) (0.0-6.0) /HPF U Epithel Cells (Auto) (0-13.0) /HPF Urine Mucus /HPF 02/18/21 02/18/21 Range/Units 04:28 04:57 WBC (4.5-11.0) K/mm3 RBC (3.65-5.03) M/mm3 Hgb (10.1-14.3) gm/dl Hct (30.3-42.9) % MCV (79-97) fl MCH (28-32) pg MCHC (30-34) % RDW (13.2-15.2) % Plt Count (140-440) K/mm3 Lymph % (Auto) (13.4-35.0) % [place] % (Auto) (0.0-7.3) % Eos % (Auto) (0.0-4.3) % Baso % (Auto) (0.0-1.8) % Lymph # (Auto) (1.2-5.4) K/mm3 [place] # (Auto) (0.0-0.8) K/mm3 Eos # (Auto) (0.0-0.4) K/mm3 Baso # (Auto) (0.0-0.1) K/mm3 Seg Neutrophils % (40.0-70.0) % Seg Neutrophils # (1.8-7.7) K/mm3 Sodium (137-145) mmol/L Potassium (3.6-5.0) mmol/L Chloride (98-107) mmol/L Carbon Dioxide (22-30) mmol/L Anion Gap mmol/L BUN (7-17) mg/dL Creatinine (0.6-1.2) mg/dL Estimated GFR ml/min BUN/Creatinine Ratio % Glucose (65-100) mg/dL Calcium (8.4-10.2) mg/dL Total Bilirubin (0.1-1.2) mg/dL AST (5-40) units/L ALT (7-56) units/L Alkaline Phosphatase (35-129) units/L Total Protein (6.3-8.2) g/dL Albumin (3.9-5) g/dL Albumin/Globulin Ratio % Lipase 18 (13-60) units/L HCG, Quant (0-4) mIU/mL Urine Color Patricia (Yellow) Urine Turbidity Slightly-cloudy (Clear) Urine pH 5.0 (5.0-7.0) Ur Specific [place] 1.035 H (1.003-1.030) Urine Protein >500 (Negative) mg/dL Urine Glucose (UA) Neg (Negative) mg/dL Urine Ketones Tr (Negative) mg/dL Urine Blood Neg (Negative) Urine Nitrite Neg (Negative) Urine Bilirubin Mod (Negative) Urine Ictotest Negative (Negative) Urine Urobilinogen 4.0 (<2.0) mg/dL Ur Leukocyte Esterase Neg (Negative) Urine WBC (Auto) 9.0 H (0.0-6.0) /HPF Urine RBC (Auto) 7.0 (0.0-6.0) /HPF U Epithel Cells (Auto) 10.0 (0-13.0) /HPF Urine Mucus 3+ /HPF - Radiology Data Radiology results: report reviewed, image reviewed Ordering Physician: JAYDA GATES Date of Service: 02/18/21 Procedure(s): US abdomen limited Accession Number(s): [id number] cc: JAYDA GATES ULTRASOUND ABDOMEN, LIMITED (RIGHT UPPER QUADRANT) INDICATION / CLINICAL INFORMATION: adb pn. COMPARISON: None available. FINDINGS: PANCREAS: Visualized portion shows no significant abnormality. LIVER: No significant abnormality. GALLBLADDER: No significant abnormality. BILE DUCTS: No significant abnormality. Common bile duct measures 5 mm. FREE FLUID: None. ADDITIONAL FINDINGS: None. IMPRESSION: 1. No significant sonographic abnormality of the right upper quadrant. Signer Name: Jass Nava DO Signed: 02/18/2021 7:01 AM Workstation Name: [email or web address] Transcribed By: NS Dictated By: JASS NAVA DO Electronically Authenticated By: JASS NAVA DO Signed Date/Time: 02/18/21 0701 Ordering Physician: JAYDA GATES Date of Service: 02/18/21 Procedure(s): US OB <= 14 weeks fetus Accession Number(s): [id number] cc: JAYDA GATES ULTRASOUND OBSTETRIC INDICATION / CLINICAL INFORMATION: Vaginal bleeding pain. Clinical Gestational Age (GA) in weeks, days: Unknown TECHNIQUE: Transabdominal. COMPARISON: None available. FINDINGS: GESTATIONAL SAC: Well-defined oval shape and intrauterine in location. YOLK SAC: No significant abnormality. EMBRYO/FETUS: No significant abnormality. - Aguila-Rump Length = 1.7 cm = 8, 1 weeks, days - Heart Rate, beats per minute (if present) = 159 ADNEXA: No significant abnormality. FREE FLUID: None. ADDITIONAL FINDINGS: None. IMPRESSION: 1. Single, living intrauterine with estimated sonographic age of 8, 1 weeks, days. The heart tones are noted at 159 bpm Signer Name: Jass Nava DO Signed: 02/18/2021 7:03 AM Workstation Name: [id number] - Differential Diagnosis ectopic pregnacncy, UTI, cholelithisis, cholecystitis, CHS Critical care attestation.: If time is entered above; I have spent that time in minutes in the direct care of this critically ill patient, excluding procedure time. ED Disposition Is pt being admited?: No Time of Disposition: 07:25
[2021-02-18 05:51] LABS: Ictotest,Urine Negative (Negative)
--- NOTE | 2021-02-18 07:05 | Ultrasound Report ---
ULTRASOUND ABDOMEN, LIMITED (RIGHT UPPER QUADRANT) INDICATION / CLINICAL INFORMATION: adb pn. COMPARISON: None available. FINDINGS: PANCREAS: Visualized portion shows no significant abnormality. LIVER: No significant abnormality. GALLBLADDER: No significant abnormality. BILE DUCTS: No significant abnormality. Common bile duct measures 5 mm. FREE FLUID: None. ADDITIONAL FINDINGS: None. IMPRESSION: 1. No significant sonographic abnormality of the right upper quadrant. Signer Name: Jass Arellano DO Signed: 02/18/2021 7:01 AM Workstation Name: [id number]
--- NOTE | 2021-02-18 07:07 | Ultrasound Report ---
ULTRASOUND OBSTETRIC INDICATION / CLINICAL INFORMATION: Vaginal bleeding pain. Clinical Gestational Age (GA) in weeks, days: Unknown TECHNIQUE: Transabdominal. COMPARISON: None available. FINDINGS: GESTATIONAL SAC: Well-defined oval shape and intrauterine in location. YOLK SAC: No significant abnormality. EMBRYO/FETUS: No significant abnormality. - [place]-Rump Length = 1.7 cm = 8, 1 weeks, days - Heart Rate, beats per minute (if present) = 159 ADNEXA: No significant abnormality. FREE FLUID: None. ADDITIONAL FINDINGS: None. IMPRESSION: 1. Single, living intrauterine with estimated sonographic age of 8, 1 weeks, days. The hea rt tones are noted at 159 bpm Signer Name: Jass Arellano DO Signed: 02/18/2021 7:03 AM Workstation Name: [id number]
[2021-02-18] MEDS ORDERED: LORazepam 2 MG/ML VIAL IV ONE (07:16)
[2021-02-18 07:30] VITALS: BP 139/75
== END 2021-02-18 07:57 | disposition home or self-care (01) ==
LOC: ED 03:57
DX: O26.891 Other specified pregnancy related conditions, first trimester (principal); O21.8 Other vomiting complicating pregnancy; O98.811 Other maternal infectious and parasitic diseases complicating pregnancy, first trimester; O88.211 Thromboembolism in pregnancy, first trimester; Z3A.08 8 weeks gestation of pregnancy; R82.71 Bacteriuria; R10.2 Pelvic and perineal pain; F17.200 Nicotine dependence, unspecified, uncomplicated
CPT/HCPCS: 36415; 76705; 76801; 80053; 81001; 83690; 84702; 85025; 87086; 96361; 96372; 96374; 96375; 99284; J0500; J1200; J2060; J2765; J7030